=== PATIENT | male | born 1970 | race Caucasian/White ===

== ENCOUNTER 2019-02-06 14:00 | Emergency (ER) | payer OTHER ==
[~2019-02-06] VITALS: Ht 182.9 cm; Wt 77.3 kg
--- NOTE | 2019-02-06 14:21 | NUR ---
PT AMBULATED STEADILY TO ROOM WITH TECH FROM LOBBY. NAD NOTED.
[2019-02-06] MEDS: ASPIRIN 81 MG TABLET CHEW PO ONE ×2 (14:24→14:30)
[2019-02-06] MEDS ORDERED: ASPIRIN 81 MG TABLET CHEW ONE (14:25)
[2019-02-06] MEDS ORDERED: KETOROLAC 30 MG/1 ML ONE (14:34)
--- NOTE | 2019-02-06 14:35 | NUR ---
FIRST CONTACT WITH PT; PWD, NAD NOTED. ERP AT BEDSIDE FOR INITIAL ASSESSMENT. PT CO L CHEST/RIB PAIN X THIS AM. DENIES INJURY BUT ADMITS TO REPEATATIVE TWISTING W/ WORK. CHEST IS NON-TENDER TO PALPATION. INCREASE IN PAIN WITH TWISTING TORSO. PT DENIES SOB/DIAPHORESIS/PRODUCTIVE COUGH/FEVER. HX OF COPD AND HTN, NON-COMPLIANT WITH MEDICATIONS. PER ERP, HOLD ASA ORDER BP/SPO2/ECG MONITORING IN PLACE. NSR ON MONITOR. EKG COMPLETED IN TRIAGE
[2019-02-06 14:39] LABS: BASOPHILS # (AUTO) 0.03 x10^3/uL (0-0.1); BASOPHILS % (AUTO) 0 % (0-1); EOSINOPHILS # (AUTO) 0.08 x10^3/uL (0-0.4); EOSINOPHILS % (AUTO) 1 % (1-7); LYMPHOCYTES % (AUTO) 33 % (22-44); MD NO; MEAN CORPUSCULAR HEMOGLOBIN 30.7 pg (27.5-34.5); MEAN CORPUSCULAR HGB CONC 34.3 g/dL (33.2-36.2); MEAN CORPUSCULAR VOLUME 89.6 fL (81-97); MEAN PLATELET VOLUME 8.1 fL (7.4-10.4); MONOCYTES # (AUTO) 0.51 x10^3/uL (0.2-0.8); MONOCYTES % (AUTO) 8 % (2-9); NEUTROPHILS # (AUTO) 3.91 x10^3/uL (1.8-6.8); NEUTROPHILS % (AUTO) 58 % (42-75); PLATELET COUNT 266 x10^3/uL (130-400); RED BLOOD COUNT 5.67 x10^6/uL (4.38-5.82); RED CELL DISTRIBUTION WIDTH 13.4 % (9.4-14.8)
[2019-02-06 14:45] LABS: ANION GAP 4 mmol/L (5-15); CALCIUM 8.6 mg/dL (8.5-10.1); CHLORIDE 106 mmol/L (98-107)
[2019-02-06 14:51] LABS: TROPONIN I < 0.015 ng/mL (0.000-0.045)
[2019-02-06] MEDS ORDERED: KETOROLAC 30 MG/1 ML IM ONE (15:00)
--- NOTE | 2019-02-06 15:21 | NUR ---
MD TO BEDSIDE, PT TO DC.
[2019-02-06 15:22] VITALS: BP 145/97
--- NOTE | 2019-02-06 15:23 | NUR ---
Patient/Caregiver given discharge instructions and they have confirmed that they understand the instructions. Patient ambulatory with steady gait.
== END 2019-02-06 15:33 | disposition home or self-care (01) ==
LOC: ED 15:11
DX: M94.0 Chondrocostal junction syndrome [Tietze] (principal); F17.200 Nicotine dependence, unspecified, uncomplicated; J44.9 Chronic obstructive pulmonary disease, unspecified; I10 Essential (primary) hypertension; Z91.030 Bee allergy status
CPT/HCPCS: 36415; 71045; 80048; 82040; 84484; 85025; 93005; 96372; 99284; J1885